=== PATIENT | male | born 1995 | race Caucasian/White ===

== ENCOUNTER 2017-12-31 03:24 | Emergency (ER) | payer OTHER ==
[~2017-12-31] VITALS: Ht 185.4 cm; Wt 82.3 kg
[~2017-12-31 03:24] MED LIST: ALPR1TAB3 PO; AMPH10TA2 PO
[2017-12-31 03:34] VITALS: TEMP 36.9; Ht 185.4 cm; Wt 82.3 kg
[2017-12-31] MEDS ORDERED: XYLOCAINE 1%/SOD BICARB 20 ML VIAL INFIL ONE (06:15)
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
[2017-12-31] MEDS ORDERED: NORCO 5/325MG HOME PACK PO ONE (07:15)
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
[2017-12-31 07:25] VITALS: BP 128/66; PULSE 80; O2SAT 100
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
== END 2017-12-31 07:28 | disposition home or self-care (01) ==
LOC: EDBD 03:24 → C.EDB 03:25
DX: T74.11XA Adult physical abuse, confirmed, initial encounter (principal); S02.5XXA Fracture of tooth (traumatic), initial encounter for closed fracture; S01.511A Laceration without foreign body of lip, initial encounter; S00.91XA Abrasion of unspecified part of head, initial encounter; S60.511A Abrasion of right hand, initial encounter; S60.512A Abrasion of left hand, initial encounter; Y04.0XXA Assault by unarmed brawl or fight, initial encounter; Y93.89 Activity, other specified; Y99.8 Other external cause status; Y92.29 Other specified public building as the place of occurrence of the external cause